=== PATIENT | male | born 1965 | race Two or more races ===

== ENCOUNTER 2020-08-03 13:39 | Outpatient (REF) | payer MEDICAID, SELFPAY ==
[2020-08-03 14:28] LABS: COVID-19 Test Negative (Negative)
== END 2020-08-03 13:40 | disposition home or self-care (01) ==
LOC: HO.LAB 13:39
PROVIDERS: Visit Provider Internal Medicine
DX: Z20.822 Contact with and (suspected) exposure to COVID-19 (principal)
CPT/HCPCS: 36415; 87635; C9803

== ENCOUNTER 2020-10-12 13:11 | Emergency (ER) | payer OTHER, MEDICAID, SELFPAY ==
--- NOTE | ~2020-10-12 | US_ITS ---
EXAMINATION: US VENOUS ULTRASOUND WITH DOPPLER LOWER EXTREMITY, LEFT CLINICAL INFORMATION: Left leg calf pain. COMPARISON: None TECHNIQUE: Ultrasound of the deep veins is performed from the hip to the calf with compression sonography and color and pulse Doppler assessment. Spectral analysis with color-flow imaging is performed. FINDINGS: There is normal venous compression and respiratory variation and augmented flow. The visualized common femoral vein, superficial femoral vein, profunda femoral vein, popliteal vein, and the trifurcation region shows no evidence of deep venous thrombosis. There is no significant popliteal fossa cyst. Note is made of nonspecific septated somewhat linear hypoechogenicity within the proximal left calf, may represent small hematoma. If the patient's symptoms persist, followup ultrasound in 5 days 7 days might be of value to exclude proximal propagation from a non-visualized calf vein. US/US venous duplex LE LT IMPRESSION: No DVT demonstrated in the left lower extremity. Possible small hematoma involving the proximal left calf.
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
[2020-10-12 13:39] VITALS: BP 120/92; PULSE 88; RESP 18; TEMP 36.2; O2SAT 98; BMI 37.9
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
[2020-10-12 16:56] VITALS: BP 149/93; PULSE 89; RESP 16; TEMP 36.4; O2SAT 99
== END 2020-10-12 17:08 | disposition home or self-care (01) ==
PROVIDERS: Emergency Provider Emergency Medicine
DX: S43.402A Unspecified sprain of left shoulder joint, initial encounter (principal); S80.12XA Contusion of left lower leg, initial encounter; V13.4XXA Pedal cycle driver injured in collision with car, pick-up truck or van in traffic accident, initial encounter; Y93.55 Activity, bike riding; Y92.410 Unspecified street and highway as the place of occurrence of the external cause; Y99.9 Unspecified external cause status
CPT/HCPCS: 73030; 73590; 93971; 99284